=== PATIENT | male | born 1995 | race Caucasian/White ===

== ENCOUNTER 2020-12-28 18:14 | Emergency (ER) | payer OTHER, SELFPAY ==
[2020-12-28] VITALS (9 sets, daily range): BP systolic 154–169; BP diastolic 94–116; PULSE 69–80; RESP 15–19; TEMP 36.8–37; O2SAT 95–100
--- NOTE | ~2020-12-28 | XR_ITS ---
EXAMINATION: XR chest 2V DATE: 12/28/2020 19:02 INDICATION: Chest pressure TECHNIQUE: PA and lateral views of the chest are obtained. COMPARISON: 12/18/2010 FINDINGS: The lungs are free of acute opacities. There is no pleural effusion or pneumothorax. The ca rdiomediastinal silhouette is normal. The visualized bones and soft tissues are unremarkable. IMPRESSION: 1. No acute cardiopulmonary abnormality. Reviewed, dictated and finalized at location A.
--- NOTE | 2020-12-28 18:38 | ECG_ITS ---
Measurements Intervals [place] Rate: 91 P: 130 MA: 127 QRS: 182 QRSD: 89 T: 128 QT: 335 QTc: 413 Interpretive Statements SINUS RHYTHM LIMB LEAD REVERSAL BORDERLINE T WAVE ABNORMALITY- INF/LAT LEADS BASELINE ARTIFACT- I, II, III, AVR, AVL, AVF BORDERLINE ECG Electronically Signed On 12-28-2020 20:13:05 CDT by Ede Coffey D.O.
[2020-12-28 18:52] LABS: Basophils Absolute Auto 0.1 K/mm3 (0.0-0.1); Basophils Percent Auto 1.1 % (0.2-1.2); Eosinophils Absolute Auto 0.4 K/mm3 (0-0.3); Eosinophils Percent Auto 4.3 % (0-4.4); Hemoglobin 17.1 g/dL (14.0-18.0); Immature Granulocyte Absolute 0.05 K/mm3 (0.00-0.031); Immature Granulocyte Percent A 0.5 % (0-0.5); Lymphocytes Absolute Auto 3.41 K/mm3 (0.9-3.2); Lymphocytes Percent Auto 36.2 % (18.3-44.2); Mean Corpuscular HGB Conc 34.9 g/dl (32-36); Mean Corpuscular Hemoglobin 32.4 pg (26-34); Mean Corpuscular Volume 92.8 fl (80-100); Mean Platelet Volume 12.2 fl (7.4-10.4); Monocytes Absolute Auto 0.7 K/mm3 (0.1-0.6); Neutrophils Absolute Auto 4.8 K/mm3 (1.3-6.7); Neutrophils Percent Auto 50.9 % (45.5-73.1); Platelet Count Result 200 k/mm3 (150-375); Red Blood Count 5.28 M/mm3 (4.6-6.20); Red Cell Distribution Width 12.7 % (11.5-14.5); White Blood Count 9.4 K/mm3 (4.5-10.0)
[2020-12-28 19:01] LABS: INR 0.9; Prothrombin Time 11.7 Seconds (11.1-14.7)
[2020-12-28 19:02] LABS: Partial Thromboplastin Time 31.6 SECONDS (22.3-36.8)
[2020-12-28 19:07] LABS: Anion Gap 11 mmol/L (8-16); Blood Urea Nitrogen 15 mg/dL (9-20); Calcium 9.3 mg/dL (8.4-10.2); Carbon Dioxide 27 mmol/L (22-30); Chloride 103 mmol/L (98-107); Estimated CRCL calculation 92 ml/min; Estimated Glomerular Filt Rate > 60; Glucose 110 mg/dL (65-110); Potassium 3.9 mmol/L (3.4-5.0); Sodium 141 mmol/L (137-145)
[2020-12-28 19:17] LABS: Troponin I < 0.012 ng/mL (0.000-0.034)
[2020-12-28 22:42] LABS: Troponin I < 0.012 ng/mL (0.000-0.034)
--- NOTE | 2020-12-28 22:44 | ED.GENADULT ---
HPI - General Adult General Chief complaint: Recheck/Abnormal Lab/Rx Stated complaint: High Blood Pressure Time Seen by Provider: 12/28/20 22:33 Source: patient, family and RN notes reviewed Limitations: no limitations History of Present Illness HPI narrative: Patient is 25 years old white male presented to the ED with hyperventilation, restlessness, elevated blood pressure. Patient denies any fever, chills, nausea, vomiting, chest pain, shortness of breath. History of anxiety and ADHD used to be on Xanax.. Patient had a new baby recently which made him more anxious and more stressed. Related Data Home Medications Medication Instructions Recorded Confirmed albuterol sulfate INHALATION 12/28/20 Allergies Allergy/AdvReac Type Severity Reaction Status Date / Time No Known Allergies Allergy Verified 12/28/20 22:53 Review of Systems Review of Systems: CONSTITUTIONAL: Denies fever, chills, or sweats. EYES: Denies visual changes, redness, or discharge. ENT: Denies rhinorrhea, congestion, sore throat, or otalgia. CARDIOVASCULAR: Denies chest pain, palpitations, or edema. RESPIRATORY: Denies cough or dyspnea. GASTROINTESTINAL: Denies abdominal pain, nausea, vomiting, or diarrhea. GENITOURINARY: Denies dysuria or hematuria. SKIN: Denies rash or itching. MUSCULOSKELETAL: Denies back pain, joint pain, or myalgia. NEUROLOGIC: Denies headache, numbness, or weakness. PSYCHIATRIC: Denies anxiety or depression. Exam Narrative: General appearance: Well-developed, well-nourished Skin: Normal color Head: Normocephalic, nontraumatic Eyes: Clear conjunctiva ENT: Oropharynx normal, ears normal, nose normal Neck: Supple, nontender Chest and respiratory: Airway patent, no respiratory distress, no accessory muscle use Heart: Regular rate/rhythm Abdomen: Soft, nontender, no organomegaly, quiet bowel sounds Vascular: Normal peripheral pulses, normal capillary refill. Musculoskeletal: Normal range of motion, nontender back Neurologic: Alert and oriented ?3, IT SECURITY CONSULTING DIRECTOR is normal as tested, no gross motor deficit Course Course Emergency Course: Stable, improving Vital Signs Vital signs: Vital Signs Temperature 37.0 C 12/28/20 18:44 Pulse Rate 78 12/28/20 18:44 Respiratory Rate 18 12/28/20 18:44 Blood Pressure 154/94 H 12/28/20 18:44 Pulse Oximetry 99 12/28/20 18:44 Temperature 37.0 C 12/28/20 18:44 Pulse Rate 79 12/28/20 22:11 Respiratory Rate 18 12/28/20 18:44 Blood Pressure 154/109 H 12/28/20 22:11 Pulse Oximetry 100 12/28/20 22:11 Medical Decision Making MDM Narrative Medical decision making narrative: Anxiety-like symptoms is my concern. Labs, chest x-ray, EKG ordered. 1 mg Ativan orally ordered. Differential Diagnosis Differential Diagnosis: Anxiety-like symptoms, hyperventilation syndrome Vital Signs Vital Signs: Vital Signs Temperature 37.0 C 12/28/20 18:44 Pulse Rate 78 12/28/20 18:44 Respiratory Rate 18 12/28/20 18:44 Blood Pressure 154/94 H 12/28/20 18:44 Pulse Oximetry 99 12/28/20 18:44 Temperature 37.0 C 12/28/20 18:44 Pulse Rate 79 12/28/20 22:11 Respiratory Rate 18 12/28/20 18:44 Blood Pressure 154/109 H 12/28/20 22:11 Pulse Oximetry 100 12/28/20 22:11 Lab Data Result diagrams: 12/28/20 18:43 12/28/20 18:43 Labs: Lab Results 12/28/20 12/28/20 12/28/20 Range/Units 18:43 18:43 18:43 WBC 9.4 (4.5-10.0) K/mm3 RBC 5.28 (4.6-6.20) M/mm3 Hgb 17.1 (14.0-18.0) g/dL Hct 49.0 (42.0-52.0) % MCV 92.8 (80-100) fl MCH 32.4 (26-34) pg MCHC 34.9 (32-36) g/dl RDW 12.7 (11.5-14.5) % Plt Count 200 (150
[2020-12-28] MEDS: LORazepam (*CRX) 0.5 MG TABLET 1 MG PO (23:08)
[2020-12-29 00:10] VITALS: BP 144/86; PULSE 76; RESP 17; O2SAT 97
== END 2020-12-29 00:10 | disposition home or self-care (01) ==
PROVIDERS: Emergency Provider Emergency Medicine
DX: F41.9 Anxiety disorder, unspecified (principal); I10 Essential (primary) hypertension; F90.9 Attention-deficit hyperactivity disorder, unspecified type; R94.31 Abnormal electrocardiogram [ECG] [EKG]
CPT/HCPCS: 36415; 71046; 80048; 84484; 85025; 85610; 85730; 93005; 99284; A9270

== ENCOUNTER 2021-12-25 11:17 | Emergency (ER) | payer OTHER, SELFPAY ==
[2021-12-25 11:20] VITALS: BP 120/90; PULSE 85; RESP 16; TEMP 36.4; O2SAT 99
--- NOTE | 2021-12-25 11:53 | ED.WOUNDLAC ---
HPI - Wound/Laceration General Chief Complaint: Wound/Laceration Stated Complaint: left leg injury with power tool Time Seen by Provider: 12/25/21 11:29 History of Present Illness HPI narrative: Patient is a 26-year-old male here for evaluation of left lower leg pain after he accidentally cut his calf with a power tool earlier today. He states that he accidentally lost control of the tool, leading to a superficial laceration on his left calf. Denies visible FB or dirt in wound. His tetanus is up-to-date as of 2 years ago. He denies any numbness or tingling, difficulty moving the foot. Related Data Home Medications Medication Instructions Recorded Confirmed albuterol sulfate 90 mcg/actuation inhalation 12/28/20 aerosol inhaler Allergies Allergy/AdvReac Type Severity Reaction Status Date / Time No Known Allergies Allergy Verified 12/25/21 11:23 Review of Systems Review of Systems: Gen: Denies fevers or chills Eyes: Denies eye pain or visual change ENT: Denies congestion Respiratory: Denies shortness of breath or cough CV: Denies chest pain or palpitations GI: Denies abdominal pain nausea, emesis or diarrhea : denies burning, urgency, frequency or hematuria Musculoskeletal: Denies back pain or muscle pain Neuro: Denies numbness, tingling, weakness or focal weakness Skin: reports laceration to calf. Except as documented, all other systems reviewed and negative Exam Narrative: Gen: Alert, oriented, no acute distress Eyes: EOMI, no icterus Pulm: Respirations even and unlabored, symmetric thorax expansion, no audible stridor or visible cyanosis CV: 2+ DP and PT pulses bilaterally. GI: No distension, no voluntary/involuntary guarding Neuro: AOx4, moves all extremities without apparent difficulty or weakness, follows commands MSK: Full range of motion in left foot and leg without pain. Skin: Patient has a 2.5 cm linear laceration to his posterior left calf that has no exposed muscle belly, no active bleeding. No jaundice, no visible bruising, rashes, lesions or wounds on exposed skin Psych: Normal mood/affect, insight/judgement good, adequate fund of knowledge, recent/remote memory intact Course Vital Signs Vital signs: Vital Signs Temperature 97.5 F L 12/25/21 11:20 Pulse Rate 85 12/25/21 11:20 Respiratory Rate 16 12/25/21 11:20 Blood Pressure 120/90 12/25/21 11:20 Pulse Oximetry 99 12/25/21 11:20 Oxygen Delivery Room Air 12/25/21 11:20 Temperature 97.5 F L 12/25/21 11:20 Pulse Rate 85 12/25/21 11:20 Respiratory Rate 16 12/25/21 11:20 Blood Pressure 120/90 12/25/21 11:20 Pulse Oximetry 99 12/25/21 11:20 Oxygen Delivery Room Air 12/25/21 11:20 Procedures Laceration Laceration 1: Date: 12/25/21 Time: 12:53 Site: lower extremity Side (If applicable): left Size (cm): 3 Description: linear Depth: simple, single layer Local Anesthetic: lidocaine 1% Amount of anesthesia used (mL): 5 Pre-repair: wound explored, irrigated and irrigated extensively ====== Skin Level ====== Skin layer closed with: other (ethilon) Size (cm): 4-0 Number of sutures: 4 Technique: simple, interrupted ====== Subcutaneous Layer ====== ====== Muscle Layer ====== ====== Tendon Layer ====== MDM - Wound/Laceration MDM Narrative Medical decision making narrative: 26 year old male here for evaluation of a 2.5 cm linear superficial laceration to his calf sustained from a tool at work. Patient states that there was no foreign material near the wound, wound explored and irrigated without FB or evidence of tendon involvement. Recommended XR to r/o retained FB but patient declined, which I feel is reasonable given mechanism. Wound was closed with simple interrupted sutures. His tetanus is up-to-date as of 2 years ago. He was given instructions on suture care and was given return precauti
== END 2021-12-25 13:03 | disposition home or self-care (01) ==
PROVIDERS: Emergency Provider Emergency Medicine
DX: S81.812A Laceration without foreign body, left lower leg, initial encounter (principal); W31.1XXA Contact with metalworking machines, initial encounter
CPT/HCPCS: 12002; 99282

== ENCOUNTER 2023-06-07 20:46 | Emergency (ER) | payer OTHER, SELFPAY ==
--- NOTE | ~2023-06-07 | XR_ITS ---
Left Hand Technique: PA, oblique, and lateral views were obtained. Clinical History: First digit laceration Findings: No acute fracture or dislocation is seen. Osseous alignment is anatomic. Joint spaces are p reserved. There is a punctate radiodensity adjacent to the distal aspect of the first metacarpal whic h could reflect a tiny foreign body. Probable soft tissue swelling of the thumb. Impression: No fracture or dislocation. Possible punctate foreign body near the distal portion of the first metacarpal. Reviewed, dictated and finalized at location M. ENGINEER Impression: No fracture or dislocation. Possible punctate foreign body near the distal portion of the first metacarpal.
[2023-06-07 20:47] VITALS: BP 146/106; PULSE 96; RESP 16; TEMP 36.6; O2SAT 98
--- NOTE | 2023-06-08 02:18 | ED.WOUNDLAC ---
HPI - Wound/Laceration General Chief Complaint: Wound/Laceration Stated Complaint: laceration Time Seen by Provider: 06/08/23 02:15 History of Present Illness HPI narrative: 28-year-old male presents to the emergency department for laceration for laceration to his left thumb. 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 This caused him to accidentally cut his left thumb with a wash box operator. He is not anticoagulated. Bleeding is controlled. Tetanus is up-to-date. Denies difficulty with range of motion to his finger. Related Data Home Medications Medication Instructions Recorded Confirmed albuterol sulfate 90 mcg/actuation inhalation 12/28/20 aerosol inhaler Allergies Allergy/AdvReac Type Severity Reaction Status Date / Time No Known Allergies Allergy Verified 06/08/23 02:20 Review of Systems Review of Systems: CONSTITUTIONAL: Denies fever, chills, or sweats. EYES: Denies visual changes, redness, or discharge. ENT: Denies rhinorrhea, congestion, sore throat, or otalgia. CARDIOVASCULAR: Denies chest pain, palpitations, or edema. RESPIRATORY: Denies cough or dyspnea. GASTROINTESTINAL: Denies abdominal pain, nausea, vomiting, or diarrhea. GENITOURINARY: Denies dysuria or hematuria. SKIN: See HPI MUSCULOSKELETAL: Denies back pain, joint pain, or myalgia. NEUROLOGIC: Denies headache, numbness, or weakness. PSYCHIATRIC: Denies anxiety or depression. Exam Narrative: GENERAL: Well-appearing, well-nourished, and in no acute distress. HEAD: Normocephalic, atraumatic. NECK: Supple. CHEST: Clear to auscultation. No respiratory distress. HEART: Regular rate and rhythm. No murmur heard. Normal peripheral pulses. EXTREMITIES: Normal range of motion. No edema. SKIN: Left thumb with a 1 cm laceration to the distal radial aspect of the phalanx that extends over the DIP joint. Mild bleeding. No deep structures or foreign bodies visualized. Patient has full range of motion of finger. Cap refill less than 2. Sensation intact. Radial pulse 2 +. NEURO: No focal deficits. Alert and oriented x3 Course Vital Signs Vital signs: Vital Signs Temperature 98 F 06/07/23 20:47 Pulse Rate 96 06/07/23 20:47 Respiratory Rate 16 06/07/23 20:47 Blood Pressure 146/106 H 06/07/23 20:47 Pulse Oximetry 98 06/07/23 20:47 Oxygen Delivery Room Air 06/07/23 20:47 Temperature 98 F 06/07/23 20:47 Pulse Rate 96 06/07/23 20:47 Respiratory Rate 16 06/07/23 20:47 Blood Pressure 146/106 H 06/07/23 20:47 Pulse Oximetry 98 06/07/23 20:47 Oxygen Delivery Room Air 06/07/23 20:47 MDM - Wound/Laceration MDM Narrative Medical decision making narrative: 28-year-old male presents to the emergency department for laceration to his left thumb that occurred prior to arrival. See HPI for further history. Vitals significant for elevated blood pressure, otherwise unremarkable. X-ray of the hand shows no acute fracture subluxation. There is a tiny radiopaque spec seen in the soft tissue to the 1st metacarpal. This is not near patient's laceration and likely an incidental finding. The laceration was irrigated extensively with normal saline. Patient is requesting to have the laceration closed with skin glue. No complications. Will discharge home with a finger splint until skin glue dissolves and Keflex and encourage close PCP follow-up. ED return precautions discussed. He is agreeable to plan verbalized understanding. Discharged in stable condition. Discharge Plan Discharge Clinical Impression: Laceration Patient Disposition: Home, Self-Care Condition: Stable Instructions: Antibiotic Form, Laceration (ED) Additional Instructions: Your evaluated in the emergency department for laceration. Skin glue was applied and your provided a finger splint. Pl
[2023-06-08] MEDS: CEPHALEXIN 500 MG CAPSULE PO (02:57)
== END 2023-06-08 03:00 | disposition home or self-care (01) ==
LOC: ANHED 06-08 02:34
PROVIDERS: Emergency Provider Physician Assistant
DX: S61.012A Laceration without foreign body of left thumb without damage to nail, initial encounter (principal); W26.8XXA Contact with other sharp object(s), not elsewhere classified, initial encounter
CPT/HCPCS: 12001; 73130; 99283; A9270

== ENCOUNTER 2023-07-15 13:52 | Emergency (ER) | payer OTHER, SELFPAY ==
--- NOTE | ~2023-07-15 | XR_ITS ---
EXAMINATION: XR hand RT min 3V DATE: 07/15/2023 14:18 INDICATION: Right hand laceration. TECHNIQUE: 3 views of right hand were obtained. COMPARISON: None. FINDINGS: Bone alignment is normal. No fracture. Joint spaces are normal. No radiopaque foreign body. IMPRESSION: 1. No fracture or radiopaque foreign body. Reviewed, dictated and finalized at location E.
[2023-07-15 13:53] VITALS: BP 149/104; PULSE 90; RESP 18; TEMP 36.4; O2SAT 100
--- NOTE | 2023-07-15 13:59 | ED.WOUNDLAC ---
HPI - Wound/Laceration General Chief Complaint: Wound/Laceration Stated Complaint: RIght hand Laceration Time Seen by Provider: 07/15/23 13:59 Source: patient Mode of arrival: ambulatory Limitations: no limitations History of Present Illness HPI narrative: Darwin is a 28-year-old male patient presenting to the emergency room today with complaints of a laceration to his right hand. He reports that he tripped over a cinder block and cut his hand on some sheet metal. Tetanus is up-to-date. This happened 30 minutes prior to arrival. Bleeding is controlled. Related Data Home Medications Medication Instructions Recorded Confirmed albuterol sulfate 90 mcg/actuation inhalation 12/28/20 aerosol inhaler Allergies Allergy/AdvReac Type Severity Reaction Status Date / Time No Known Allergies Allergy Verified 07/15/23 13:59 Review of Systems Review of Systems: Pertinent positives per HPI. Patient denies any fever, chills, rash, headache, visual changes, dizziness, cough, runny nose, sore throat, shortness of breath, chest pain, palpitations, nausea, vomiting, diarrhea, constipation, abdominal pain, or any urinary issues. PMFSH Comments At the time of my signature, I reviewed and agree with the nursing past medical, surgical, social, and family history. There is no relevant family history pertinent to the patient complaint. Exam Narrative: General: Well-developed, well nourished, in no apparent distress Head: Normocephalic, atraumatic. Cardio: Regular rate and rhythm, s1 and s2 normal, no murmur appreciated. Resp: Clear to auscultation bilaterally, no rhonchi, rales, wheezing or rubs. Integumentary: Shoals, warm, and dry, 4cm laceration to the right lateral hand and 5th finger. Gapped flap laceration Course Course Emergency Course: Portions of this record may have been created with voice recognition software. Vital Signs Vital signs: Vital Signs Temperature 36.4 C L 07/15/23 13:53 Pulse Rate 90 07/15/23 13:53 Respiratory Rate 18 07/15/23 13:53 Blood Pressure 149/104 H 07/15/23 13:53 Pulse Oximetry 100 07/15/23 13:53 Oxygen Delivery Room Air 07/15/23 13:53 Temperature 36.4 C L 07/15/23 13:53 Pulse Rate 90 07/15/23 13:53 Respiratory Rate 18 07/15/23 13:53 Blood Pressure 149/104 H 07/15/23 13:53 Pulse Oximetry 100 07/15/23 13:53 Oxygen Delivery Room Air 07/15/23 13:53 Vital signs reviewed Procedures Laceration Laceration 1: Date: 07/15/23 Site: hand Side (If applicable): right Size (cm): 4 Description: linear, flap, irregular and clean Depth: simple, single layer Local Anesthetic: lidocaine 1% Amount of anesthesia used (mL): 6 Pre-repair: wound explored, irrigated and irrigated extensively ====== Skin Level ====== Skin layer closed with: nylon Size (cm): 4-0 Number of sutures: 16 Technique: simple, interrupted ====== Subcutaneous Layer ====== ====== Muscle Layer ====== ====== Tendon Layer ====== Dressing: Verbal consent obtained for laceration repair. Risk and benefits explained and patient voiced understanding. Area was cleansed with antiseptic soap and a 27 gauge needle was then used to instill (6) ml of 1% lidocaine without epi into the wound edges. Area was prepped and draped using sterile technique. A 4-0 suture on a p needle was used to place (16) interrupted sutures bringing the wound edges together- well approximated. Patient tolerated procedure well. Sterile dressing applied. MDM - Wound/Laceration MDM Narrative Medical decision making narrative: At the time of visit patient is resting comfortably on the exam table. Patient appears to be nontoxic. Diagnostics: X-rays of right hand negative for any sign of fracture or foreign body Plan: I suspect patient has a 4 cm hand laceration to the right hand. Sixteen interrupted sut
[2023-07-15] MEDS: ONDANSETRON HCL ODT 4 MG TABLET PO (14:12)
[2023-07-15] MEDS: LIDOCAINE HCL 1% LOCAL INJ 10 ML VIAL 6 ML INFILTRATE (15:34)
[2023-07-15 16:20] VITALS: BP 142/87; PULSE 76; RESP 17; O2SAT 99
== END 2023-07-15 16:20 | disposition home or self-care (01) ==
PROVIDERS: Emergency Provider Nurse Practitioner Family; PCP Family Medicine
DX: S61.411A Laceration without foreign body of right hand, initial encounter (principal); W01.118A Fall on same level from slipping, tripping and stumbling with subsequent striking against other sharp object, initial encounter
CPT/HCPCS: 12002; 73130; 99283; A9270

== ENCOUNTER 2024-10-01 08:04 | Outpatient (CLI) | payer OTHER, SELFPAY ==
--- NOTE | ~2024-10-01 | US_ITS ---
US abdomen limited Ordering provider: aTty Guaman, History: . umbilical hernia w/o obstruction . Comparison: None. FINDINGS/impression: Targeted ultrasound for the area of concern on the superior umbilicus which shows a fat-containing he rnia with minimal movement with the Valsalva. The hernia measures 2.7 x 1.8 x 2.2 cm. The neck measur es 0.9 cm. Blood flow is noted. Reviewed, dictated and finalized at location A.
--- OUTSIDE RECORDS SUMMARY | 2024-10-01 08:08 | XMS_ITS | Clinical Summary ---
Author Organization [facility] Address [address] [place] [phone] Phone Care Team Providers Care Weather Clerk Name Role Phone Unavailable Primary Care Provider Unavailabl e Medications omeprazole (PriLOSEC) 20 mg Capsule, Delayed Release(E.C.) Take 20 mg by mouth daily. Active Social History Tobacco Use Types Packs/Day Years Used Date Smoking Tobacco: Never Assessed Feeling Safe Answer Date Recorded Are you in a relationship wi th someone who hurts you emotionally and/or physically? No 07/26/2022 Sex and Gender Information Value Date Recorded Sex Assigned at Not on file Legal Sex Male 3:40 PM CDT Gender Identity Not on file Sexual Orientation Not on file Last Filed Vital Signs Vital Sign Reading Time Taken Comments Blood Pressure 158/116 07/26/2022 5:59 PM CDT Pulse 84 07/26/2022 5:59 PM CDT Temperature 37.1 C (98.7 F) 07/26/2022 3:46 PM CDT Respiratory Rate 17 07/26/2022 5:59 PM CDT Oxygen Saturation 98% 07/26/2022 5:59 PM CDT Inhaled Oxygen Concentration - - Weight 90.7 kg (200 lb) 07/26/2022 3:46 PM CDT Height 182.9 cm (6') 07/26/2022 3:46 PM CDT Body Mass Index 27.12 07/26/2022 3:46 PM CDT Plan of Treatment Health Maintenance Due Date Last Done Comments INFLUENZA VACCINE (#1) 2023 01/25/2020 DTAP/TDAP/TD VACCINES (3 - Td or Tdap) 01/24/2030 01/25/2020, 07/25/2006, 08/02/2000, Additional history exists HEPATITIS B VACCINES Completed 1995, 1995, 1995 HPV VACCINES Aged Out No longer eligi ble based on patient's age to complete this topic Insurance [employer] [phone] [place] [address]
--- OUTSIDE RECORDS SUMMARY | 2024-10-01 08:08 | XMS_ITS | Clinical Summary ---
Author Organization [facility] [employer] Address [address] [place] [address] Care Team Providers Care Instrumentation Instructor Name Role Phone Taty Guaman MD Primary Care Provider [phone] Source Comments [facility],non-owned Affiliates and Associated Physician Practices is amultiple site organization consisting of ambulatory clinics and hospital sitesin [place], [place], [place] and [place]. This disclosure is being madepursuant to the Care Everywhere program and may not contain all information available regarding this patient. Last updated 17.[facility] [employer] Allergies Active Allergy Reactions Criticality Noted Date Comments Jeremy Inhibitors Cough 09/05/2022 Medications * Be aware that medications may not be up to date on this document. Alwaysverify current medications with the patient. fexofenadine (Julia) 180 MG tablet Take 1 (one) tablet by mouth once daily Active omeprazole (PriLOSEC) 20 MG capsule TAKE 1 CAPSULE BY MOUTH IN THE MORNING AND AT BEDTIME. 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) INHALE 1 PUFF BY MOUTH TWICE DAILY 60 Each 2 5 Active albuterol HFA (Proventil; Ventolin; Proair) 108 (90 Base) MCG/ACT inhaler INHALE 2 PUFFS BY MOUTH EVERY 4 HOURS NEEDED FOR WHEEZING OR SHORTNESS OF BREATH 6.7 g 5 Active Active Problems Problem Noted Date Diagnosed Date ADHD (attention deficit hyperactivity disorder) 09/05/2022 09/05/2022 Anxiety 09/05/2022 09/05/2022 Asthma 09/05/2022 09/05/2022 Overview (09/05/2022): Last Assessment & Plan: No current exacerbations - some congestion and allergies in the spring weather noted but no SOB or asthma concerns GERD (gastroesophageal reflux disease) 3 09/05/2022 Overview (09/05/2022): Last Assessment & Plan: Pt reports symptoms have resolved with use of omeprazole. Continue this medication Limit spicy foods or foods that exacerbate symptoms. If GI symptoms recur - follow-up promptly Hypertension 09/05/2022 09/05/2022 Overview (09/05/2022): Last Assessment & Plan: Pt did not have BP monitor accessible during visit and had not taken today but reported improvement with most readings 110-120-130/70-80. Feels better on medication. Notes when the BP is 130/80s (rarely 90) it is when he has consumed too much caffeine. Continue current mediation. Continue to check blood pressure daily - preferably twice per day and write down the results for next visit. If elevations above 130/80 persist, follow-up to adjust medications. Limit caffeine and sodium intake Add daily exercise Establishing care with new doctor, encounter for 04/05/2021 09/05/2022 Overview (09/05/2022): I have Chronic cough from asthma, i cough so hard i end up puking. my fianc thinks i should be taking breathing treatments and an inhaler. My blood pressure is always high and i went to the er a few months ago for it they said it was anxiety. I have adhd and i think im developing OCD Encounters Date Type Department Care Team Description 08/30/2024 Refill [facility] [address] [phone] Taty Guaman MD Refill Request 08/12/2024 Refill [facility] [address] [phone] Taty Guaman MD Refill Request 08/05/2024 8:30 AM CDT Office Visit [facility] [address] [phone] Taty Guaman MD Umbilical hernia without obstruction and without gangrene (Primary Dx); Mild persistent asthma without complication (HCC) 07/26/2024 Refill [facility] [address] [phone] Taty Guaman MD Refill Request 07/09/2024 Telephone [facility] [address] [phone] Taty Guaman MD Umbilical Issue from Last 3 Months Immunizations Immunization Administration Dates Next Due DTAP, HISTORIC VACCINE 08/02/2000,1995,1995,06/29,1995 HEP B VACCINE 1995,1995,1995 HIB VACCINE 03/18/1996, 6,1995,05/09 INFLUENZA VACCINE, CELL CULT URE, QUADR. (FLUCELVAX QUADRIVALENT; 6MO+) (CCIIV4) 01/25/2020 MENINGOCOCCAL ACWY (MCV4P) VAC IM 07/25/2006 MMR VACCINE 08/02/2000,03/18/1996 POLIO,HISTORIC VACCINE 08/02/2000,1995,1995,05/09 TDAP, HISTORIC VACCINE 01/25/2020,07/25/2006 VARICELLA 07/25/2006,03/18/1996 Family History Medical History Relation Name Comments Hypertension Father Hypertension Maternal Grandmother Hypertension Mother Relation Name Status Comments Father Maternal Grandmother Mother Social History Tobacco Use Types Packs/Day Years Used Date Smoking Tobacco: Never Smokeless Tobacco: Never Tobacco Cessation:Counseling Given: Not Answered Alcohol Use Standard Drinks/Week Comments Yes 0 (1 standard drink = 0.6 oz pur e alcohol) PHQ-2 Answer Date Recorded Patient Health Questionnaire-2 Score 0 08/05/2024 Sex and Gender Information Value Date Recorded Sex Assigned at Not on file Legal Sex Male 5:41 AM ONCOLOGY NAVIGATOR Gender Identity Not on file Sexual Orientation Not on file Last Filed Vital Signs Vital Sign Reading Time Taken Comments Blood Pressure 130/89 08/05/2024 8:28 AM CDT Pulse 80 08/05/2024 8:28 AM CDT Temperature 37.5 C (99.5 F) 12/07/2022 2:42 PM CDT Respiratory Rate 18 05/11/2023 7:50 AM ONCOLOGY NAVIGATOR Oxygen Saturation 98% 08/05/2024 8:28 AM CDT Inhaled Oxygen Concentration - - Weight 102.7 kg (226 lb 6.4 oz) 08/05/2024 8:28 AM CDT Height 182.9 cm (6') 08/05/2024 8:28 AM CDT Body Mass Index 30.71 08/05/2024 8:28 AM CDT Plan of Treatment Health Maintenance Due Date Last Done Comments HIV SCREENING 2010 PNEUMOCOCCAL VACCINE (1 of 2 - PCV) 2014 COVID-19 VACCINE (1 - season) 2023 INFLUENZA VACCINE (Season Ended) 2024 01/25/2020 DTAP/TDAP/TD VACCINES (8 - Td or Tdap) 01/24/2030 01/25/2020, 07/25/2006, 08/02/2000, Additional history exists ZOSTER VACCINE (1 of 2) 2045 HEPATITIS B VACCINE Completed 1995, 1995, 1995 HIB VACCINE Completed 03/18/1996, 10/1995, 1995, Additional history exists MENINGOCOCCAL GROUPS A/C/Y/W VACCINE Aged Out 07/25/2006 No longer eligible based on patient's age to complete this topic DEPRESSION SCREENING Completed 08/05/2024, 05/11/2023, 09/05/2022 HEPATITIS C SCREENING Discontinued HPV VACCINE Aged Out No longer eligi ble based on patient's age to complete this topic MENINGOCOCCAL (Group B) VACCINE SHARED DECISION-MAKING Aged Out No longer eligible based on patient's age to complete this topic Insurance [facility] Care Teams Instrumentation Instructor Relationship Specialty Start Date End Date Taty Guaman MD [address] [phone] PCP - General Family Medicine 09/05/22
== END 2024-10-01 08:05 | disposition home or self-care (01) ==
PROVIDERS: PCP Family Medicine; Visit Provider Family Medicine
DX: K42.9 Umbilical hernia without obstruction or gangrene (principal)
CPT/HCPCS: 76705